=== PATIENT | female | born 1970 | race Caucasian/White ===

== ENCOUNTER 2017-04-07 17:39 | Emergency (ER) | payer OTHER ==
[2017-04-07] MEDS ORDERED: TORAdol 30 mg Injection IM ONE (18:15)
--- NOTE | 2017-04-07 18:18 | ERPHSYRPT ---
- History of Present Illness Time Seen by Provider: 04/07/17 18:16 Source: patient Exam Limitations: no limitations Patient Subjective Stated Complaint: states three days ago was lifting a case of water and twisted right wrist. pain to wrist. Triage Nursing Assessment: ambulated to room per self. having tremors in extremities. has right wrist wrapped tightly with matheus wrap. wrist normal color , good radial pulse, warm to touch. good cap refill. patient very talkative, crying out at times. Physician History: 46 y/o female comes to the ER with complaints of right wrist and arm pain that started after a case of water fell on it. Pt describes the pain as sharp, constant, 8/10, worse with movement and not relieved by ibuprofen, tylenol and percocet. Occurred: yesterday Method of Injury: direct blow Quality: constant Severity of Pain-Max: severe Severity of Pain-Current: severe Extremities Pain Location: forearm: right, wrist: right Modifying Factors: Improves With: nothing Associated Symptoms: none Allergies/Adverse Reactions: acetaminophen [From Fioricet] Allergy (Verified 04/07/17 18:21) butalbital [From Fioricet] Allergy (Verified 04/07/17 18:21) caffeine [From Fioricet] Allergy (Verified 04/07/17 18:21) duloxetine [From Cymbalta] Allergy (Verified 04/07/17 18:21) morphine Allergy (Verified 04/07/17 18:21) Penicillins Allergy (Verified 04/07/17 18:21) Home Medications: Albuterol 8 gm Mdi Hfa [Ventolin Hfa MDI] 8 gm IH UD 04/07/17 [History] Alprazolam [Xanax] 2 mg PO BID 04/07/17 [History] Cetirizine HCl [Zyrtec] 10 mg PO DAILY 04/07/17 [History] Cholecalciferol (Vitamin D3) [Vitamin D3] 5,000 unit PO DAILY 04/07/17 [History] Docusate Sodium [Dulcolax Stool Softener] 100 mg PO DAILY 04/07/17 [History] Fluticasone/Vilanterol [Breo Ellipta 200-25 Mcg INH] 1 each IH DAILY 04/07/17 [ History] Hydrochlorothiazide 25 mg [hydroDIURIL 25 MG] 25 mg PO BID 04/07/17 [ History] Magnesium Oxide [Magnesium] 500 mg PO DAILY 04/07/17 [History] Omeprazole 40 mg PO DAILY 04/07/17 [History] Oxycodone HCl/Acetaminophen [Percocet 10-325 mg Tablet] 1 each PO QID 04/07/17 [ History] Potassium Chloride 10 Meq Tab* [Klor Con 10 MEQ] 10 meq PO BID 04/07/17 [ History] Quetiapine Fumarate [Seroquel] 100 mg PO HS 04/07/17 [History] Ranitidine HCl [Zantac] 300 mg PO HS 04/07/17 [History] Tiotropium [place] [Spiriva] 18 mcg IH DAILY 04/07/17 [History] Tizanidine HCl 4 mg [Zanaflex 4 MG] 4 mg PO HS 04/07/17 [History] Hx Tetanus, Diphtheria Vaccination/Date Given: Yes Hx Influenza Vaccination/Date Given: Yes Hx Pneumococcal Vaccination/Date Given: No - Review of Systems Constitutional: No Fever, No Chills Eyes: No Symptoms Ears, Nose, & Throat: No Symptoms Respiratory: No Cough, No Dyspnea Cardiac: No Chest Pain, No Edema, No Syncope Abdominal/Gastrointestinal: No Abdominal Pain, No Nausea, No Vomiting, No Diarrhea Genitourinary Symptoms: No Dysuria Musculoskeletal: Joint Pain, Myalgias, No Back Pain, No Neck Pain Skin: No Rash Neurological: No Dizziness, No Focal Weakness, No Sensory Changes Psychological: No Symptoms Endocrine: No Symptoms All Other Systems: Reviewed and Negative - Past Medical History Pertinent Past Medical History: Yes Respiratory History: COPD Musculoskeletal History: Degenerative Disk Disease, Osteoarthritis, Other GI Medical History: GERD Psycho-Social History: Anxiety, Depression Female Reproductive Disorders: Abnormal Uterine Bleeding Other Medical History: allergies - Past Surgical History Past Surgical History: Yes Gastrointestinal: Appendectomy, Cholecystectomy Musculoskeletal: Orthopedic Surgery Female Surgical History: Tubal Ligation Other Surgical History: back surgery, ear surgery, ablasion - Social History Smoking Status: Current every day smoker How long have you smoked: 30 Exposure to second hand smoke: Yes Drug Use: none Patient Lives Alone: No - Female History Hx Last Menstrual Period: 03/21/17 - Nursing Vital Signs Nursing Vital Signs: Initial Vital Signs Temperature 98 F 04/07/17 17:45 Pulse Rate 90 08/24/17 17:45 Respiratory Rate 20 04/07/17 17:45 Blood Pressure 135/86 04/07/17 17:45 O2 Sat by Pulse Oximetry 98 04/07/17 17:45 Pain Scale Pain Intensity 10 - Physical Exam General Appearance: alert Eyes, Ears, Nose, Throat Exam: moist mucous membranes Neck Exam: non-tender, supple Cardiovascular/Respiratory Exam: chest non-tender, normal breath sounds, regular rate/rhythm, no respiratory distress Abdominal Exam: non-tender, No guarding Back Exam: normal inspection, No vertebral tenderness Elbow/Forearm Exam: bone tenderness, limited ROM Wrist Exam: bone tenderness, limited ROM Neuro/Tendon Exam: normal sensation, normal motor functions Mental Status Exam: alert, oriented x 3, cooperative Skin Exam: normal color, warm, dry SpO2: 98 Oxygen Delivery: Room Air - Course Nursing assessment & vital signs reviewed: Yes Ordered Tests: Active Orders 24 hr Category Date Time Status Matheus Bandage Application -[facility] STAT Care 04/07/17 19:14 Ordered Sling Application STAT Care 04/07/17 19:14 Ordered FOREARM Stat Exams 04/07/17 Taken WRIST (MIN 3 VIEWS) Stat Exams 04/07/17 Taken Medication Summary Discontinued Medications Generic Name Dose Route Start Last Admin Trade Name Freq PRN Reason Stop Dose Admin Ketorolac Tromethamine 60 mg 04/07/17 18:15 04/07/17 18:30 Toradol 30 Mg Injection IM 04/07/17 18:16 60 mg STAT ONE Administration Ketorolac Tromethamine Confirm 04/07/17 18:28 Toradol 30 Mg Injection Administered 04/07/17 18:29 Dose 60 mg .ROUTE .STK-MED ONE - Progress Progress: improved Progress Note: 04/07/17 19:15 The x ray of the wrist and forearm do not show an acute fracture or dislocation. Pt will be d/c home on toradol for pain. - Departure Time of Disposition: 19:15 Departure Disposition: Home Clinical Impression: Forearm injury Qualifiers: Encounter type: initial encounter Laterality: right Qualified Code(s): S59.911A - Unspecified injury of right forearm, initial encounter Condition: Stable Critical Care Time: No Referrals: LAMIN US [Primary Care Provider] - Instructions: Wrist Sprain Additional Instructions: Follow up with your primary care doctor for any additional management for pain. Prescriptions: Ketorolac Tromethamine [Toradol] 10 mg PO QID PRN #20 tablet PRN Reason: Pain
[2017-04-07] MEDS ORDERED: TORAdol 30 mg Injection ONE (18:28)
[2017-04-07 19:24] VITALS: BP 100/67; PULSE 76; O2SAT 99
--- NOTE | 2017-04-08 09:10 | XRAY ---
Indication: Pain following fall 3 days ago. Comparison: None 2 views of the right forearm obtained. No bony, articular, or soft tissue abnormalities.
--- NOTE | 2017-04-08 09:11 | XRAY ---
Indication: Pain following fall 3 days ago. Comparison: None 3 views of the right wrist demonstrates distal scaphoid bone cyst. No other bony, articular, or soft tissue abnormalities.
== END 2017-04-07 19:24 | disposition home or self-care (01) ==
LOC: ED 17:39
DX: S59.911A Unspecified injury of right forearm, initial encounter (principal); X50.0XXA Overexertion from strenuous movement or load, initial encounter; Z79.899 Other long term (current) drug therapy
CPT/HCPCS: 73090; 73110; 96372; 99283; J1885

== ENCOUNTER 2019-09-24 08:04 | Day surgery (SDC) | payer OTHER ==
[2019-09-24] MEDS ORDERED: Lactated Ringers 1,000 ML IV SCH (08:30)
[2019-09-24] MEDS ORDERED: Ketamine HCl 50 MG/ML ONE (11:49)
[2019-09-24] MEDS ORDERED: DIPRIVAN 200 MG/20 ML IV ONE ×2 (11:49→12:06)
[2019-09-24 13:02] VITALS: BP 134/72; PULSE 71; O2SAT 95
--- NOTE | 2019-09-25 09:05 | OP ---
PROCEDURE DATE/TIME: 09/24/2019 1153 PREOPERATIVE DIAGNOSES: 1) Abdominal discomfort. 2) Food allergies. 3) Dysphagia. 4) Bloating. POSTOPERATIVE DIAGNOSES: 1) Reflux esophagitis. 2) Gastritis. PROCEDURE: EGD with multiple biopsies. PROCEDURE PERFORMED BY: Tiny Joiner M.D. ESTIMATED BLOOD LOSS: Minimal. ANESTHESIA: MAC. SPECIMENS: 1) Duodenal biopsies from first portion of the duodenum including second and third portion of the duodenum. 2) Gastric antrum. 3) Distal esophagus; rule out Lilly's disease. 4) Esophagitis; rule out eosinophilia. COMPLICATIONS: None. HISTORY: This is a patient who has multiple GI symptoms including abdominal pain/discomfort, bloating, nausea and dysphagia. She has been found to have potential food allergies and has changed her diet. We are working with diet changes to see how she is doing. However, she still continues to have symptoms and she has been referred back for further EGD by Dr. Jorge Alberto Zhao to see if her diet changes have decreased the inflammatory findings in her GI tract. Risks, benefits, alternatives have been discussed with the patient. She was seen personally. H&P and consent reviewed and confirmed. DESCRIPTION OF PROCEDURE: She was then laid in the left lateral decubitus position. A complete time out performed. The scope gently introduced into the mouth, oropharynx, down to the esophagus, stomach and duodenum. Her duodenum does not appear to have any inflammation. It is slightly more blanched in appearance with slightly more whitish-colored mucosa than a completely normal duodenum. I took multiple biopsies throughout D1, D2 and D3 to check this under the microscope and all these sites were hemostatic. We then backed the scope up to the antrum. The patient did have some gastritis throughout her stomach. It was moderate throughout the body and antrum, slightly milder in the superior aspect of the stomach and the tissue here was slightly thicker. I did take antral biopsy to rule out any microscopic findings including Helicobacter pylori disease. There is nothing in her stomach that looks malignant and there are no ulcers and there are no other findings other than inflammation. There was no blood. We then carefully withdrew after we insured hemostasis and then carefully withdrew the scope into the distal esophagus. The patient has some reflux esophagitis here. I did do distal esophagus biopsies to rule out any Lilyl's disease. She does not have any long columns of Lilly's like disease but she does have inflammation that extends for about 1 cm in two areas and so we biopsied these to insure no significant findings. These sites were hemostatic. Superior to this her esophagus had some very minimal inflammation immediate superior to this. I did take esophageal biopsies in this region, superior to our Lilly's biopsy to rule out any eosinophilic esophagitis or other findings here and these sites were hemostatic after biopsy. The remainder of her esophagus looked very good. She does have reflux. I do not see any significant hiatal hernia at this time. The patient tolerated this part of the procedure well. There were no immediate complications. We carefully withdrew the scope. I have discussed all of the results with her family in the postoperative area. We are going to keep her on her current medication regimen. I am going to keep her on her current diet regimen until we find the results of our biopsies. She is going to follow up with me in outpatient for these. Tentatively I am going to put her on a plan for EGD on an as needed basis but if anything comes back with concern for Lilly's disease then we will change that to a year from now.
== END 2019-09-24 13:07 | disposition home or self-care (01) ==
LOC: SDC 08:04
PROVIDERS: ATTEND Surgery
DX: K21.9 Gastro-esophageal reflux disease without esophagitis (principal); J98.4 Other disorders of lung; K29.70 Gastritis, unspecified, without bleeding; R13.10 Dysphagia, unspecified; R14.0 Abdominal distension (gaseous)
CPT/HCPCS: J2704

== ENCOUNTER 2020-01-30 11:38 | Emergency (ER) | payer OTHER ==
--- NOTE | 2020-01-30 11:47 | ERPHSYRPT ---
- History of Present Illness Time Seen by Provider: 01/30/20 11:47 Source: patient Exam Limitations: no limitations Physician History: This is a 49-year-old female who smokes daily and presents with flulike symptoms including cough mild shortness of breath myalgias and arthralgias. Her symptoms have been intermittent over the last 4 weeks. Patient was here to be with her significant other and during the screening questioning the patient's responses prompted the patient to be evaluated. Patient denies chest pain. She has had no nausea vomiting or diarrhea. Her significant other is here in the emergency room for evaluation of his productive cough and chest pain associated with his cough. Patient states that she can use codeine and hydrocodone-based cough me dicine. She can also use steroids as well. Timing/Duration: week(s) (4), intermittent, worse Possible Cause: occasional episodes Modifying Factors: Improves With: coughing Associated Symptoms: fever, cough, muscle aches, shortness of breath Allergies/Adverse Reactions: morphine Allergy (Severe, Verified 09/24/19 08:20) Headache "fee like my head will explode" nortriptyline Allergy (Severe, Verified 09/24/19 08:20) Muscle Aches "severe leg cramps" acetaminophen [From Fioricet] Allergy (Intermediate, Verified 09/24/19 08:20) Rapid Heart Beat butalbital [From Fioricet] Allergy (Intermediate, Verified 09/24/19 08:20) Irregular Heart Beat caffeine [From Fioricet] Allergy (Intermediate, Verified 09/24/19 08:20) Irregular Heart Beat duloxetine [From Cymbalta] Allergy (Intermediate, Verified 09/24/19 08:20) Irregular Heart Beat Penicillins Allergy (Intermediate, Verified 09/24/19 08:20) Hives Home Medications: Albuterol 8 gm Mdi Hfa [Ventolin Hfa MDI] 8 gm IH UD 04/07/17 [History] Alprazolam [Xanax] 1.5 mg PO BID 04/07/17 [History] Cetirizine HCl [Zyrtec] 10 mg PO DAILY 04/07/17 [History] Docusate Sodium [Dulcoease] 100 mg PO DAILY 04/07/17 [History] Fluticasone/Vilanterol [Breo Ellipta 200-25 Mcg INH] 1 each IH DAILY 04/07/17 [History] Hydrochlorothiazide 25 mg [hydroDIURIL 25 MG] 25 mg PO DAILY 04/07/17 [History] Omeprazole 40 mg PO DAILY 04/07/17 [History] Oxycodone HCl/Acetaminophen [Percocet 10-325 mg Tablet] 1 each PO QID 04/07/17 [History] Potassium Chloride 10 Meq Tab* [Klor Con 10 MEQ] 10 meq PO BID 04/07/17 [History] Quetiapine Fumarate [Seroquel] 200 mg PO HS 04/07/17 [History] Tiotropium [place] [Spiriva] 18 mcg IH DAILY 04/07/17 [History] Tizanidine HCl 4 mg [Zanaflex 4 MG] 4 mg PO TID 04/07/17 [History] raNITIdine HCl [Zantac] 300 mg PO HS 04/07/17 [History] Albuterol 2.5 mg/3 ml Neb [Proventil 2.5 mg/3 ml Neb] 2.5 mg IH Q4HPRN PRN 09/14/19 [History] Fluticasone Propionate [Flonase NASAL] 16 gm NS DAILY 09/14/19 [History] Linaclotide [Linzess] 72 mcg PO DAILY 09/14/19 [History] Multivitamin [Flintstones] 1 each PO DAILY 09/14/19 [History] Hx Tetanus, Diphtheria Vaccination/Date Given: Yes Hx Influenza Vaccination/Date Given: Yes Hx Pneumococcal Vaccination/Date Given: No Travel Risk - International Travel Have you traveled outside of the country in past 3 weeks: No - Coronavirus Screening Are you exhibiting any of the following symptoms?: Yes Symptoms: Cough: New Onset, Shortness of Breath, Headaches/Body Aches/Fatigue Close contact with a COVID-19 positive Pt in past 14-21 Days: No - Review of Systems Constitutional: No Symptoms Eyes: No Symptoms Ears, Nose, & Throat: No Symptoms Respiratory: Cough, Dyspnea Cardiac: No Symptoms, No Chest Pain Abdominal/Gastrointestinal: No Symptoms, No Abdominal Pain, No Nausea, No Vomiting, No Diarrhea, No Constipation Genitourinary Symptoms: No Symptoms Musculoskeletal: Arthralgias, Myalgias Skin: No Symptoms Neurological: No Symptoms Psychological: No Symptoms Endocrine: No Symptoms Hematologic/Lymphatic: No Symptoms Immunological/Allergic: No Symptoms All Other Systems: Reviewed and Negative - Past Medical History Pertinent Past Medical History: Yes Neurological History: No Pertinent History ENT History: No Pertinent History Cardiac History: Congestive Heart Failure, Hypertension Respiratory History: COPD Endocrine Medical History: No Pertinent History Musculoskeletal History: Degenerative Disk Disease, Osteoarthritis, Other GI Medical History: GERD History: Other Psycho-Social History: Anxiety, Depression Female Reproductive Disorders: Abnormal Uterine Bleeding Other Medical History: allergies seasonal, states "getting testing for difficulty emptying bladder and contracted kidney by the ultrasound" - Past Surgical History Past Surgical History: Yes Neuro Surgical History: No Pertinent History Cardiac: No Pertinent History Respiratory: No Pertinent History Gastrointestinal: Appendectomy, Cholecystectomy Genitourinary: No Pertinent History Musculoskeletal: Orthopedic Surgery Female Surgical History: Tubal Ligation Other Surgical History: back surgery "put two rods in and some other hdw and replaced disc", ear surgery "fixed a whole in my right ear" uterine ablation, - Social History Smoking Status: Current every day smoker How long have you smoked: 30 Exposure to second hand smoke: Yes Drug Use: none Patient Lives Alone: No - Nursing Vital Signs Nursing Vital Signs: Initial Vital Signs Respiratory Rate 18 01/30/20 12:05 O2 Sat by Pulse Oximetry 96 01/30/20 12:05 Pain Scale Pain Intensity 0 - Physical Exam General Appearance: mild distress, alert, anxiety Eye Exam: PERRL/EOMI, eyes nml inspection Ears, Nose, Throat Exam: normal ENT inspection, moist mucous membranes Neck Exam: normal inspection, non-tender, supple, full range of motion Respiratory Exam: normal breath sounds, lungs clear, airway intact, No chest tenderness, No respiratory distress Cardiovascular Exam: regular rate/rhythm, normal heart sounds, normal peripheral pulses Gastrointestinal/Abdomen Exam: soft, normal bowel sounds, No tenderness Pelvic Exam: not done Rectal Exam: not done Back Exam: normal inspection, normal range of motion, No CVA tenderness, No vertebral tenderness Extremity Exam: normal inspection, normal range of motion, pelvis stable Neurologic Exam: alert, oriented x 3, cooperative, 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 Skin Exam: normal color, warm, dry Lymphatic Exam: No adenopathy SpO2 Interpretation: normal O2 Delivery: Room Air - Course Nursing assessment & vital signs reviewed: Yes EKG Interpreted by Me: RATE (66), Sinus Rhythm, NORMAL AXIS, NORMAL INTERVALS, NORMAL QRS Ordered Tests: Active Orders 24 hr Category Date Time Status [facility]ist STAT Care 01/30/20 12:22 Active EKG-ER Only STAT Care 01/30/20 12:16 Active IV Insertion STAT Care 01/30/20 12:16 Active Pulse Oximetry (ED) STAT Care 01/30/20 12:22 Active CHEST 1 VIEW (PORTABLE) Stat Exams 01/30/20 12:17 Completed BLOOD CULTURE Stat Lab 01/30/20 12:20 Received CBC W DIFF Stat Lab 01/30/20 12:16 Completed CMP Stat Lab 01/30/20 12:10 Completed Lactic Acid Stat Lab 01/30/20 12:16 Completed Randall Screen Stat Lab 01/30/20 12:10 Completed UA W/RFX UR CULTURE Stat Lab 01/30/20 12:21 Completed Lab/Rad Data: Laboratory Result Diagrams 01/30/20 12:16 01/30/20 12:10 Laboratory Results 01/30/20 01/30/20 01/30/20 Range/Units 13:10 12:21 12:16 WBC (4.0-10.5) K/mm3 RBC (4.1-5.4) M/mm3 Hgb (12.0-16.0) gm/dl Hct (35-47) % MCV (78-100) fl MCH (26-32) pg MCHC (32-36) g/dl RDW (11.5-14.0) % Plt Count (150-450) K/mm3 MPV (7.5-11.0) fl Gran % (36.0-66.0) % Eos # (Auto) (0-0.5) Absolute Lymphs (auto) (1.0-4.6) Absolute Monos (auto) (0.0-1.3) Lymphocytes % (24.0-44.0) % Monocytes % (0.0-12.0) % Eosinophils % (0.00-5.0) % Basophils % (0.0-0.4) % Absolute Granulocytes (1.4-6.9) Basophils # (0-0.4) Sodium (137-145) mmol/L Potassium (3.5-5.1) mmol/L Chloride (98-107) mmol/L Carbon Dioxide (22-30) mmol/L Anion Gap (5-15) MEQ/L BUN (7-17) mg/dL Creatinine (0.52-1.04) mg/dL Estimated GFR ML/MIN Glucose (74-106) mg/dL Lactic Acid 1.2 (0.4-2.0) Calcium (8.4-10.2) mg/dL Total Bilirubin (0.2-1.3) mg/dL AST (14-36) U/L ALT (0-35) U/L Alkaline Phosphatase (38-126) U/L Serum Total Protein (6.3-8.2) g/dL Albumin (3.5-5.0) g/dL Urine Color YELLOW (YELLOW) Urine Appearance CLEAR (CLEAR) Urine pH 6.0 (5-6) Ur Specific [place] 1.013 (1.005-1.025) Urine Protein NEGATIVE (Negative) Urine Ketones NEGATIVE (NEGATIVE) Urine Blood NEGATIVE (0-5) Subhash/ul Urine Nitrite NEGATIVE (NEGATIVE) Urine Bilirubin NEGATIVE (NEGATIVE) Urine Urobilinogen NEGATIVE (0-1) mg/dL Ur Leukocyte Esterase NEGATIVE (NEGATIVE) Urine WBC (Auto) NONE (0-5) /HPF Urine RBC (Auto) NONE (0-2) /HPF U Epithel Cells (Auto) RARE (FEW) /HPF Urine Bacteria (Auto) NONE (NEGATIVE) /HPF Urine Mucus (Auto) SLIGHT (NEGATIVE) /HPF Urine Culture Reflexed NO (NO) Urine Glucose NEGATIVE (NEGATIVE) mg/dL Monoscreen (Negative) Influenza Type A Ag NEGATIVE (NEGATIVE) Influenza Type B Ag NEGATIVE (NEGATIVE) RSV (PCR) NEGATIVE (Negative) Group A Strep Antibody NEGATIVE (NEGATIVE) 01/30/20 01/30/20 01/30/20 Range/Units 12:16 12:10 12:10 WBC 8.3 (4.0-10.5) K/mm3 RBC 4.93 (4.1-5.4) M/mm3 Hgb 15.6 (12.0-16.0) gm/dl Hct 48.5 H (35-47) % MCV 98.4 (78-100) fl MCH 31.6 (26-32) pg MCHC 32.2 (32-36) g/dl RDW 13.8 (11.5-14.0) % Plt Count 298 (150-450) K/mm3 MPV 10.2 (7.5-11.0) fl Gran % 51.7 (36.0-66.0) % Eos # (Auto) 0.16 (0-0.5) Absolute Lymphs (auto) 3.41 (1.0-4.6) Absolute Monos (auto) 0.41 (0.0-1.3) Lymphocytes % 41.1 (24.0-44.0) % Monocytes % 4.9 (0.0-12.0) % Eosinophils % 1.9 (0.00-5.0) % Basophils % 0.4 (0.0-0.4) % Absolute Granulocytes 4.28 (1.4-6.9) Basophils # 0.03 (0-0.4) Sodium 138 (137-145) mmol/L Potassium 3.8 (3.5-5.1) mmol/L Chloride 106 (98-107) mmol/L Carbon Dioxide 27 (22-30) mmol/L Anion Gap 9.2 (5-15) MEQ/L BUN 11 (7-17) mg/dL Creatinine 0.64 (0.52-1.04) mg/dL Estimated GFR > 60.0 ML/MIN Glucose 103 (74-106) mg/dL Lactic Acid (0.4-2.0) Calcium 9.4 (8.4-10.2) mg/dL Total Bilirubin 0.40 (0.2-1.3) mg/dL AST 21 (14-36) U/L ALT 16 (0-35) U/L Alkaline Phosphatase 98 (38-126) U/L Serum Total Protein 7.9 (6.3-8.2) g/dL Albumin 4.3 (3.5-5.0) g/dL Urine Color (YELLOW) Urine Appearance (CLEAR) Urine pH (5-6) Ur Specific [place] (1.005-1.025) Urine Protein (Negative) Urine Ketones (NEGATIVE) Urine Blood (0-5) Subhash/ul Urine Nitrite (NEGATIVE) Urine Bilirubin (NEGATIVE) Urine Urobilinogen (0-1) mg/dL Ur Leukocyte Esterase (NEGATIVE) Urine WBC (Auto) (0-5) /HPF Urine RBC (Auto) (0-2) /HPF U Epithel Cells (Auto) (FEW) /HPF Urine Bacteria (Auto) (NEGATIVE) /HPF Urine Mucus (Auto) (NEGATIVE) /HPF Urine Culture Reflexed (NO) Urine Glucose (NEGATIVE) mg/dL Monoscreen NEGATIVE (Negative) Influenza Type A Ag (NEGATIVE) Influenza Type B Ag (NEGATIVE) RSV (PCR) (Negative) Group A Strep Antibody (NEGATIVE) - Progress Progress: improved Air Movement: good Progress Note: 01/30/20 13:49 Chest x-ray reveals no acute pulmonary process Blood Culture(s) Obtained: No Antibiotics given: No Counseled pt/family regarding: lab results, diagnosis, need for follow-up, rad results - Departure Departure Disposition: Home Clinical Impression: Bronchitis Condition: Stable Critical Care Time: No Referrals: AMRITA LOCKETT MD [Primary Care Provider] - Additional Instructions: Drink plenty of fluids. Avoid exposure to smoke of any kind. Quarantine yourself until you find out the results of your COVID-19 test. Follow-up with your primary care physician for further management. Take your medications as prescribed Prescriptions: Prednisone 10 mg [Deltasone 10 mg] 10 mg PO TID #12 tablet Hydrocodone Bit/Acetaminophen [Hydrocodone-Acetaminophen Soln] 10 ml PO Q6H #120 ml Azithromycin 250 mg [Zithromax 250 MG TABLET] 250 mg PO ZPACK #6 tablet
--- NOTE | 2020-01-30 12:54 | XRAY ---
Indication: Cough and nausea. Suspect Covid 19. Comparison: None Portable chest demonstrates normal heart and lungs with a few incidental tiny calcified granulomas. Bony thorax intact.
[2020-01-30 13:02] LABS: Absolute Neutrophil Ct (ANC) 4.28 (1.4-6.9); BASOPHIL % 0.4 % (0.0-0.4); Basophil (Absolute #) 0.03 (0-0.4); Eosinophil % 1.9 % (0.00-5.0); Eosinophil (Absolute #) 0.16 (0-0.5); Hematocrit 48.5 % (35-47); Hemoglobin 15.6 gm/dl (12.0-16.0); Lymphocyte (Absolute #) 3.41 (1.0-4.6); Lymphocytes % 41.1 % (24.0-44.0); Mean Cell Volume 98.4 fl (78-100); Mean Corpuscular Hemoglobin 31.6 pg (26-32); Mean Corpuscular Hgb Concent. 32.2 g/dl (32-36); Mean Platelet Volume 10.2 fl (7.5-11.0); Monocyte (Absolute #) 0.41 (0.0-1.3); Monocytes % 4.9 % (0.0-12.0); Neutrophil % 51.7 % (36.0-66.0); Platelet Count 298 K/mm3 (150-450); Red Blood Count 4.93 M/mm3 (4.1-5.4); Red Cell Distribution Width 13.8 % (11.5-14.0); White Blood Count 8.3 K/mm3 (4.0-10.5)
[2020-01-30 13:09] LABS: ALBUMIN 4.3 g/dL (3.5-5.0); ALKALINE PHOSPHATASE 98 U/L (38-126); ANION GAP 9.2 MEQ/L (5-15); BLOOD UREA NITROGEN 11 mg/dL (7-17); CHLORIDE 106 mmol/L (98-107); Calcium 9.4 mg/dL (8.4-10.2); Carbon Dioxide 27 mmol/L (22-30); Creatinine 1 0.64 mg/dL (0.52-1.04); Glucose 103 mg/dL (74-106); Potassium 3.8 mmol/L (3.5-5.1); SGOT/AST 21 U/L (14-36); SGPT/ALT 16 U/L (0-35); SODIUM 138 mmol/L (137-145); Total Protein 7.9 g/dL (6.3-8.2)
[2020-01-30 13:44] LABS: Appearance CLEAR (CLEAR); Bilirubin NEGATIVE (NEGATIVE); Blood NEGATIVE Ery/ul (0-5); Epithelial Cells RARE /HPF (FEW); Glucose NEGATIVE (NEGATIVE); Ketones NEGATIVE (NEGATIVE); Leukocyte Esterase NEGATIVE (NEGATIVE); Mucus SLIGHT /HPF (NEGATIVE); Nitrite NEGATIVE (NEGATIVE); Protein,Urine Dip NEGATIVE (Negative); Specific Gravity 1.013 (1.005-1.025); Urobilinogen NEGATIVE mg/dL (0-1)
[2020-01-30 13:48] LABS: INFLUENZA A NEGATIVE (NEGATIVE); INFLUENZA B NEGATIVE (NEGATIVE); RESPIRATORY SYNCTIAL VIRUS NEGATIVE (Negative)
[2020-01-30 14:08] VITALS: BP 99/66; PULSE 80; O2SAT 95
== END 2020-01-30 14:09 | disposition home or self-care (01) ==
LOC: ED 11:38
DX: J40 Bronchitis, not specified as acute or chronic (principal); R05 Cough; Z79.891 Long term (current) use of opiate analgesic; Z79.899 Other long term (current) drug therapy; I10 Essential (primary) hypertension; I50.9 Heart failure, unspecified; J44.9 Chronic obstructive pulmonary disease, unspecified
CPT/HCPCS: 36000; 36415; 71045; 80053; 81001; 83605; 85025; 86308; 87040; 87631; 87651; 93005; 93041; 94760; 99284; U0002

== ENCOUNTER 2021-11-13 14:14 | Emergency (ER) | payer OTHER ==
[2021-11-13] MEDS ORDERED: Lasix 40 MG/4 ML IV ONE (14:23)
[2021-11-13] MEDS ORDERED: BABY ASPIRIN 81 MG CHEW PO ONE (14:23)
[2021-11-13] MEDS ORDERED: DUONEB 0.5-3 MG/3 ml Neb IH ONE ×2 (14:25→14:38)
[2021-11-13] MEDS ORDERED: solu-MEDROL 125 MG, Sterile H2O 10 ml 2 ML IV ONE ×2 (14:25)
[2021-11-13] MEDS ORDERED: Sterile H2O 10 ml IJ ONE (14:34)
[2021-11-13] MEDS ORDERED: BABY ASPIRIN 81 MG CHEW ONE (14:35)
[2021-11-13] MEDS ORDERED: solu-MEDROL ONE (14:35)
[2021-11-13] MEDS ORDERED: Lasix 40 MG/4 ML ONE (14:35)
--- NOTE | 2021-11-13 14:35 | ERPHSYRPT ---
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 The fluid was gone and he told me to go back to the original dose and now I think the fluid is back. My chest started to hurt last night." Triage Nursing Assessment: Pt presented alert and oriented X3, skin pwd pt ambulates with a slow gait, able to sepak in full complete sentences pt in no apaprent respiratory distress. PT has intermittant cough. Physician History: Patient is here with chest pain and shortness of breath. Patient states that she started feeling more short of breath last night. Patient does have a history of CHF, COPD. 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 States that she has no falls or other trauma. Patient states that they recently increased her Lasix. And then back down. Patient states that she is a daily smoker. Last cigarette was approximately 20 minutes prior to arrival. Timing/Duration: yesterday Severity: moderate Modifying Factors: Improves With: medication Associated Symptoms: denies symptoms Allergies/Adverse Reactions: morphine Allergy (Severe, Verified 09/24/19 08:20) Headache "fee like my head will explode" nortriptyline Allergy (Severe, Verified 09/24/19 08:20) Muscle Aches "severe leg cramps" acetaminophen [From Fioricet] Allergy (Intermediate, Verified 09/24/19 08:20) Rapid Heart Beat butalbital [From Fioricet] Allergy (Intermediate, Verified 09/24/19 08:20) Irregular Heart Beat caffeine [From Fioricet] Allergy (Intermediate, Verified 09/24/19 08:20) Irregular Heart Beat duloxetine [From Cymbalta] Allergy (Intermediate, Verified 09/24/19 08:20) Irregular Heart Beat Penicillins Allergy (Intermediate, Verified 09/24/19 08:20) Hives Home Medications: ALPRAZolam [Xanax] 1.5 mg PO BID 04/07/17 [History] Albuterol 8 gm Mdi Hfa [Ventolin Hfa MDI] 8 gm IH UD 04/07/17 [History] Cetirizine HCl [Zyrtec] 10 mg PO DAILY 04/07/17 [History] Docusate Sodium [Dulcoease] 100 mg PO DAILY 04/07/17 [History] Fluticasone/Vilanterol [Breo Ellipta 200-25 Mcg INH] 1 each IH DAILY 04/07/17 [History] Omeprazole 40 mg PO DAILY 04/07/17 [History] Potassium Chloride 10 Meq Tab* [Klor Con 10 MEQ] 10 meq PO BID 04/07/17 [History] Quetiapine Fumarate [Seroquel] 200 mg PO HS 04/07/17 [History] Tiotropium Draper [Spiriva] 18 mcg IH DAILY 04/07/17 [History] Tizanidine HCl 4 mg [Zanaflex 4 MG] 4 mg PO TID 04/07/17 [History] raNITIdine HCl [Zantac] 300 mg PO HS 04/07/17 [History] Albuterol 2.5 mg/3 ml Neb [Proventil 2.5 mg/3 ml Neb] 2.5 mg IH Q4HPRN PRN 09/14/19 [History] Fluticasone Propionate [Flonase NASAL] 16 gm NS DAILY 09/14/19 [History] Linaclotide [Linzess] 72 mcg PO DAILY 09/14/19 [History] Multivitamin [Flintstones] 1 each PO DAILY 09/14/19 [History] Furosemide 40 mg [Lasix 40 MG] 40 mg PO DAILY 11/13/21 [History] Hx Tetanus, Diphtheria Vaccination/Date Given: Yes Hx Influenza Vaccination/Date Given: Yes Hx Pneumococcal Vaccination/Date Given: No Immunizations Up to Date: Yes Travel Risk - International Travel Have you traveled outside of the country in past 3 weeks: No - Coronavirus Screening Are you exhibiting any of the following symptoms?: No Close contact with a COVID-19 positive Pt in past 14-21 Days: No - Vaccine Status Have you recieved a Covid-19 vaccination: Yes Back Maker: [employer] - Vaccination Dates Date of 2cond Vaccination (if applicable): 07/2021 - Review of Systems Constitutional: No Fever, No Chills Eyes: No Symptoms Ears, Nose, & Throat: No Symptoms Respiratory: Cough, Wheezing, Other (Shortness of breath), No Dyspnea Cardiac: Chest Pain, No Edema, No Syncope Abdominal/Gastrointestinal: No Abdominal Pain, No Nausea, No Vomiting, No Diarrhea Genitourinary Symptoms: No Dysuria Musculoskeletal: No Back Pain, No Neck Pain Skin: No Rash Neurological: No Dizziness, No Focal Weakness, No Sensory Changes Psychological: No Symptoms Endocrine: No Symptoms All Other Systems: Reviewed and Negative - Past Medical History Pertinent Past Medical History: Yes Neurological History: No Pertinent History ENT History: No Pertinent History Cardiac History: Congestive Heart Failure, Hypertension Respiratory History: COPD Endocrine Medical History: No Pertinent History Musculoskeletal History: Degenerative Disk Disease, Osteoarthritis, Other GI Medical History: GERD History: Other Psycho-Social History: Anxiety, Depression Female Reproductive Disorders: Abnormal Uterine Bleeding Other Medical History: allergies seasonal, states "getting testing for difficulty emptying bladder and contracted kidney by the ultrasound" - Past Surgical History Past Surgical History: Yes Neuro Surgical History: No Pertinent History Cardiac: No Pertinent History Respiratory: No Pertinent History Gastrointestinal: Appendectomy, Cholecystectomy Genitourinary: No Pertinent History Musculoskeletal: Orthopedic Surgery Female Surgical History: Tubal Ligation Other Surgical History: back surgery "put two rods in and some other hdw and replaced disc", ear surgery "fixed a whole in my right ear" uterine ablation, - Social History Smoking Status: Current every day smoker How long have you smoked: 30 Exposure to second hand smoke: Yes Drug Use: none Patient Lives Alone: No - Nursing Vital Signs Nursing Vital Signs: Initial Vital Signs Temperature 98.0 F 11/13/21 14:14 Pulse Rate 90 11/13/21 14:14 Respiratory Rate 22 11/13/21 14:14 Blood Pressure 129/66 11/13/21 14:14 O2 Sat by Pulse Oximetry 97 11/13/21 14:14 Pain Scale Pain Intensity 6 - Physical Exam General Appearance: no apparent distress, alert Eye Exam: PERRL/EOMI, eyes nml inspection Ears, Nose, Throat Exam: normal ENT inspection, TMs normal, pharynx normal, moist mucous membranes Neck Exam: normal inspection, non-tender, supple, full range of motion Respiratory Exam: chest tenderness (Chest wall pain reproducible on physical exam, patient very wheezy), wheezing, No normal breath sounds, No lungs clear, No respiratory distress Cardiovascular Exam: regular rate/rhythm, normal heart sounds, normal peripheral pulses Gastrointestinal/Abdomen Exam: soft, normal bowel sounds, No tenderness, No mass Back Exam: normal inspection, normal range of motion, No CVA tenderness, No vertebral tenderness Extremity Exam: normal inspection, normal range of motion, pelvis stable Neurologic Exam: alert, oriented x 3, cooperative, normal mood/affect, nml cere bellar function, nml station & gait, sensation nml, No motor deficits Skin Exam: normal color, warm, dry, No rash Lymphatic Exam: No adenopathy SpO2: 97 - Course Nursing assessment & vital signs reviewed: Yes EKG Interpreted by Me: Sinus Rhythm Ordered Tests: Active Orders 24 hr Category Date Time Status Support Technician STAT Care 11/13/21 14:24 Active EKG-ER Only STAT Care 11/13/21 14:23 Active IV Insertion STAT Care 11/13/21 14:23 Active CHEST 2 VIEWS (PA AND LAT) Stat Exams 11/13/21 14:24 Completed CBC W DIFF Stat Lab 11/13/21 14:30 Completed CMP Stat Lab 11/13/21 14:30 Completed LIPASE Stat Lab 11/13/21 14:30 Completed NT PRO BNP Stat Lab 11/13/21 14:30 Completed PROTIME WITH INR Stat Lab 11/13/21 14:30 Completed PTT Stat Lab 11/13/21 14:30 Completed TROPONIN Q3H Lab 11/13/21 14:30 Completed TROPONIN Q3H Lab 11/13/21 17:30 Ordered TROPONIN Q3H Lab 11/13/21 20:30 Ordered TROPONIN Q3H Lab 11/13/21 23:30 Ordered TROPONIN Q3H Lab 11/14/21 02:30 Ordered Respiratory Therapy Assessment DAILY RT 11/13/21 14:44 Active Medication Summary Generic Name Dose Route Start Last Admin Trade Name Freq PRN Reason Stop Dose Admin Magnesium Sulfate/Dextrose 100 mls @ 100 mls/hr 11/13/21 14:45 11/13/21 14:58 Magnesium 1 Gm / 100 Ml D5w IV 11/13/21 16:44 100 mls/hr Q1H PEPE Administration Discontinued Medications Generic Name Dose Route Start Last Admin Trade Name Freq PRN Reason Stop Dose Admin Albuterol/Ipratropium 3 ml 11/13/21 14:25 11/13/21 14:40 Ipratropium/Albuterol Sulfate 3 Ml Ampul.Neb IH 11/13/21 14:26 3 ml STAT ONE Administration Albuterol/Ipratropium Confirm 11/13/21 14:38 Ipratropium/Albuterol Sulfate 3 Ml Ampul.Neb Administered 11/13/21 14:39 Dose 3 ml IH .STK-MED ONE Aspirin 324 mg 11/13/21 14:23 11/13/21 14:38 Aspirin 81 Mg Tab.Chew PO 11/13/21 14:24 324 mg STAT ONE Administration Aspirin Confirm 11/13/21 14:35 Aspirin 81 Mg Tab.Chew Administered 11/13/21 14:36 Dose 324 mg .ROUTE .STK-MED ONE Methylprednisolone Sodium 0 mg 11/13/21 14:25 11/13/21 14:42 Succinate 125 mg/ Sterile IV 11/13/21 14:26 125 mg Water 2 ml STAT ONE Administration Furosemide 60 mg 11/13/21 14:23 11/13/21 14:39 Furosemide 40 Mg/4 Ml Vial IV 11/13/21 14:24 60 mg STAT ONE Administration Furosemide Confirm 11/13/21 14:35 Furosemide 40 Mg/4 Ml Vial Administered 11/13/21 14:36 Dose 80 mg .ROUTE .STK-MED ONE Methylprednisolone Sodium Succinate Confirm 11/13/21 14:35 Methylprednis Sod Succ 125 Mg/2 Ml Vial Administered 11/13/21 14:36 Dose 125 mg .ROUTE .STK-MED ONE Sterile Water Confirm 11/13/21 14:34 Water For Injection,Sterile 10 Ml Vial Administered 11/13/21 14:35 Dose 10 ml IJ .STK-MED ONE Lab/Rad Data: Laboratory Result Diagrams 11/13/21 14:30 11/13/21 14:30 Laboratory Results 11/13/21 11/13/21 11/13/21 Range/Units 14:30 14:30 14:30 WBC (4.0-10.5) K/mm3 RBC (4.1-5.4) M/mm3 Hgb (12.0-16.0) gm/dl Hct (35-47) % MCV (78-100) fl MCH (26-32) pg MCHC (32-36) g/dl RDW (11.5-14.0) % Plt Count (150-450) K/mm3 MPV (7.5-11.0) fl Gran % (36.0-66.0) % Eos # (Auto) (0-0.5) Absolute Lymphs (auto) (1.0-4.6) Absolute Monos (auto) (0.0-1.3) Lymphocytes % (24.0-44.0) % Monocytes % (0.0-12.0) % Eosinophils % (0.00-5.0) % Basophils % (0.0-0.4) % Absolute Granulocytes (1.4-6.9) Basophils # (0-0.4) PT 11.8 (9.4-12.5) SECONDS INR 1.00 (0.8-3.0) APTT 33.6 (25.1-36.5) SECONDS Sodium 140 (137-145) mmol/L Potassium 3.8 (3.5-5.1) mmol/L Chloride 106 (98-107) mmol/L Carbon Dioxide 24 (22-30) mmol/L Anion Gap 14.3 (5-15) MEQ/L BUN 12 (7-17) mg/dL Creatinine 0.66 (0.52-1.04) mg/dL Estimated GFR > 60.0 ML/MIN Glucose 103 (74-106) mg/dL Calcium 9.4 (8.4-10.2) mg/dL Total Bilirubin 0.50 (0.2-1.3) mg/dL AST 23 (14-36) U/L ALT 19 (0-35) U/L Alkaline Phosphatase 85 (38-126) U/L Troponin I < 0.012 (0.000-0.034) ng/mL NT-Pro-B Natriuret Pep 74.1 (0-900) pg/mL Serum Total Protein 6.9 (6.3-8.2) g/dL Albumin 4.1 (3.5-5.0) g/dL Lipase 77 (23-300) U/L 11/13/21 Range/Units 14:30 WBC 9.0 (4.0-10.5) K/mm3 RBC 4.75 (4.1-5.4) M/mm3 Hgb 14.1 (12.0-16.0) gm/dl Hct 45.4 (35-47) % MCV 95.6 (78-100) fl MCH 29.7 (26-32) pg MCHC 31.1 L (32-36) g/dl RDW 14.9 H (11.5-14.0) % Plt Count 266 (150-450) K/mm3 MPV 9.9 (7.5-11.0) fl Gran % 58.2 (36.0-66.0) % Eos # (Auto) 0.31 (0-0.5) Absolute Lymphs (auto) 2.95 (1.0-4.6) Absolute Monos (auto) 0.47 (0.0-1.3) Lymphocytes % 32.6 (24.0-44.0) % Monocytes % 5.2 (0.0-12.0) % Eosinophils % 3.4 (0.00-5.0) % Basophils % 0.6 (0.0-0.4) % Absolute Granulocytes 5.26 (1.4-6.9) Basophils # 0.05 (0-0.4) PT (9.4-12.5) SECONDS INR (0.8-3.0) APTT (25.1-36.5) SECONDS Sodium (137-145) mmol/L Potassium (3.5-5.1) mmol/L Chloride (98-107) mmol/L Carbon Dioxide (22-30) mmol/L Anion Gap (5-15) MEQ/L BUN (7-17) mg/dL Creatinine (0.52-1.04) mg/dL Estimated GFR ML/MIN Glucose (74-106) mg/dL Calcium (8.4-10.2) mg/dL Total Bilirubin (0.2-1.3) mg/dL AST (14-36) U/L ALT (0-35) U/L Alkaline Phosphatase (38-126) U/L Troponin I (0.000-0.034) ng/mL NT-Pro-B Natriuret Pep (0-900) pg/mL Serum Total Protein (6.3-8.2) g/dL Albumin (3.5-5.0) g/dL Lipase (23-300) U/L - Progress Progress: improved Progress Note: 11/13/21 14:34 Plan is for a cardiac work-up with COPD work-up. Differential diagnosis includes volume overload, CHF, infection, pneumonia, COPD exacerbation. Plan for albuterol, steroids, basic labs, chest x-ray, troponin. I did personally review the EKG. No obvious ST changes. 11/13/21 15:37 Patient's troponin is normal. Chest x-ray shows no pneumonias. Patient feels improved with albuterol and steroids. Plan for prednisone. I did discuss quitting smoking with the patient. She states her understanding. We will go from there, she has no signs of CHF, volume overload, BNP is normal. I do believe this all represents a COPD exacerbation. 11/13/21 15:40 Counseled pt/family regarding: lab results, diagnosis, need for follow-up, rad results, smoking cessation - Departure Departure Disposition: Home Clinical Impression: COPD exacerbation Condition: Stable Critical Care Time: No Referrals: JERE MOSELEY MACHINE LEARNING INTERN [Primary Care Provider] - Follow up/PCP as directed Instructions: Chronic Obstructive Pulmonary Disease, Quitting Smoking for Older Adults Prescriptions: Prednisone 10 mg [Deltasone 10 mg] 40 mg PO DAILY 5 Days #100 tablet
[2021-11-13 14:39] LABS: Absolute Neutrophil Ct (ANC) 5.26 (1.4-6.9); Basophil (Absolute #) 0.05 (0-0.4); Eosinophil % 3.4 % (0.00-5.0); Eosinophil (Absolute #) 0.31 (0-0.5); Hematocrit 45.4 % (35-47); Hemoglobin 14.1 gm/dl (12.0-16.0); Lymphocyte (Absolute #) 2.95 (1.0-4.6); Lymphocytes % 32.6 % (24.0-44.0); Mean Cell Volume 95.6 fl (78-100); Mean Corpuscular Hemoglobin 29.7 pg (26-32); Mean Corpuscular Hgb Concent. 31.1 g/dl (32-36); Mean Platelet Volume 9.9 fl (7.5-11.0); Monocyte (Absolute #) 0.47 (0.0-1.3); Monocytes % 5.2 % (0.0-12.0); Neutrophil % 58.2 % (36.0-66.0); Platelet Count 266 K/mm3 (150-450); Red Blood Count 4.75 M/mm3 (4.1-5.4); Red Cell Distribution Width 14.9 % (11.5-14.0)
[2021-11-13] MEDS ORDERED: Magnesium 1 Gm / 100 Ml D5W*** 100 ML IV ONE ×2 (14:52→15:48)
[2021-11-13] MEDS: Magnesium 1 Gm / 100 Ml D5W*** 100 ML IV SCH ×2 (14:58→15:49)
[2021-11-13 15:00] LABS: ALBUMIN 4.1 g/dL (3.5-5.0); ALKALINE PHOSPHATASE 85 U/L (38-126); ANION GAP 14.3 MEQ/L (5-15); BLOOD UREA NITROGEN 12 mg/dL (7-17); CHLORIDE 106 mmol/L (98-107); Calcium 9.4 mg/dL (8.4-10.2); Carbon Dioxide 24 mmol/L (22-30); Creatinine 1 0.66 mg/dL (0.52-1.04); EST GLOMERULAR FILTRATION RATE > 60.0 ML/MIN; Glucose 103 mg/dL (74-106); LIPASE 77 U/L (23-300); NT PRO BNP 74.1 pg/mL (0-900); Potassium 3.8 mmol/L (3.5-5.1); SGOT/AST 23 U/L (14-36); SGPT/ALT 19 U/L (0-35); SODIUM 140 mmol/L (137-145); Total Protein 6.9 g/dL (6.3-8.2)
[2021-11-13 15:02] LABS: PROTIME 11.8 SECONDS (9.4-12.5)
[2021-11-13 15:15] LABS: PTT 33.6 SECONDS (25.1-36.5)
--- NOTE | 2021-11-13 15:27 | XRAY ---
Indication: Chest pain. Fluid in lungs. Comparison: June 06, 2021. PA/lateral chest remains clear again with tiny left base calcified granuloma. Heart not enlarged. Bony thorax intact again with minimal degenerative changes. No new/acute findings.
[2021-11-13 15:42] LABS: Bacteria RARE /HPF (NEGATIVE); Epithelial Cells RARE /HPF (FEW); Mucus SLIGHT /HPF (NEGATIVE)
[2021-11-13 15:49] LABS: Appearance CLEAR (CLEAR); Bilirubin NEGATIVE (NEGATIVE); Glucose NEGATIVE (NEGATIVE); Ketones NEGATIVE (NEGATIVE); RBC NEGATIVE Ery/ul (0-5)
[2021-11-13 15:50] LABS: Nitrite NEGATIVE (NEGATIVE); Protein,Urine Dip NEGATIVE (Negative); Urine Cultured Indicated? NO; Urobilinogen 0.2 mg/dL (0-1)
[2021-11-13 15:54] LABS: Dipstick done @ ? MAIN LAB
[2021-11-13 16:07] VITALS: BP 96/63; PULSE 79; O2SAT 98
== END 2021-11-13 16:36 | disposition home or self-care (01) ==
LOC: ED 14:14
DX: J44.1 Chronic obstructive pulmonary disease with (acute) exacerbation (principal); R07.9 Chest pain, unspecified; R06.02 Shortness of breath; I11.0 Hypertensive heart disease with heart failure; I50.9 Heart failure, unspecified; K21.9 Gastro-esophageal reflux disease without esophagitis; Z72.0 Tobacco use; Z79.899 Other long term (current) drug therapy; Z79.52 Long term (current) use of systemic steroids
CPT/HCPCS: 36000; 36415; 71046; 80053; 81015; 83690; 83880; 84484; 85025; 85610; 85730; 93005; 93041; 94640; 96374; 96375; 96376; 99284; J1940; J2930; J3475; A9270-GY

== ENCOUNTER 2022-08-05 10:34 | Emergency (ER) | payer OTHER ==
[2022-08-05] MEDS ORDERED: solu-MEDROL 125 MG, Sterile H2O 10 ml 2 ML IV ONE ×2 (11:08)
[2022-08-05] MEDS ORDERED: DUONEB 0.5-3 MG/3 ml Neb IH ONE ×2 (11:08→11:13)
[2022-08-05 11:13] LABS: Absolute Neutrophil Ct (ANC) 4.69 x10^3/uL (1.4-6.9); Basophil (Absolute #) 0.07 x10^3/uL (0-0.4); Eosinophil % 3.6 % (0.00-5.0); Eosinophil (Absolute #) 0.29 x10^3/uL (0-0.5); Hematocrit 46.3 % (35-47); Hemoglobin 14.3 g/dL (12.0-16.0); Lymphocyte (Absolute #) 2.56 x10^3/uL (1.0-4.6); Lymphocytes % 31.8 % (24.0-44.0); Mean Cell Volume 93.3 fL (78-100); Mean Corpuscular Hemoglobin 28.8 pg (26-32); Mean Corpuscular Hgb Concent. 30.9 g/dL (32-36); Mean Platelet Volume 10.3 fL (7.5-11.0); Monocyte (Absolute #) 0.42 x10^3/uL (0.0-1.3); Monocytes % 5.2 % (0.0-12.0); Neutrophil % 58.3 % (36.0-66.0); Platelet Count 293 x10^3/uL (150-450); Red Blood Count 4.96 x10^6/uL (4.1-5.4); Red Cell Distribution Width 14.4 % (11.5-14.0); White Blood Count 8.1 x10^3/uL (4.0-10.5)
[2022-08-05] MEDS ORDERED: Sterile H2O 10 ml IJ ONE (11:13)
[2022-08-05] MEDS ORDERED: solu-MEDROL ONE (11:13)
[2022-08-05 11:29] LABS: ALBUMIN 4.2 g/dL (3.5-5.0); ALKALINE PHOSPHATASE 89 U/L (38-126); ANION GAP 9.2 MEQ/L (5-15); BLOOD UREA NITROGEN 7 mg/dL (7-17); CHLORIDE 106 mmol/L (98-107); Carbon Dioxide 26 mmol/L (22-30); Creatinine 1 0.56 mg/dL (0.52-1.04); EST GLOMERULAR FILTRATION RATE > 60.0 ML/MIN; Glucose 111 mg/dL (74-106); MAGNESIUM 1.8 mg/dL (1.6-2.3); NT PRO BNP 67.3 pg/mL (0-900); Potassium 3.4 mmol/L (3.5-5.1); SGOT/AST 22 U/L (14-36); SGPT/ALT 19 U/L (0-35); SODIUM 138 mmol/L (137-145); Total Protein 7.5 g/dL (6.3-8.2)
--- NOTE | 2022-08-05 11:55 | XRAY ---
Indication: Short of breath. COPD. Comparison: November 13, 2021 Portable chest again hyperinflated with incidental tiny left lung calcified granuloma. No focal infiltrate, consolidation, or large effusion. Heart not enlarged. Bony thorax intact again with mild osteopenia and degenerative changes. Impression: Continued nonacute hyperinflated chest with chronic features.
[2022-08-05] MEDS ORDERED: Vibramycin 100 MG PO ONE (12:35)
[2022-08-05 12:38] VITALS: BP 116/62; PULSE 70
[2022-08-05 12:41] VITALS: O2SAT 95
--- NOTE | 2022-08-05 12:41 | ERPHSYRPT ---
- History of Present Illness Time Seen by Provider: 08/05/22 10:36 Source: patient Exam Limitations: no limitations Patient Subjective Stated Complaint: SOB Triage Nursing Assessment: Patient brought back to ED per w/c and transferred self to bed. Patient A+O X3. Patient's skin pink, warm and dry. Patient complains of SOB and cough for one week. Patient's lung noted to have wheezing throughout. Patient complains of non productive cough. Physician History: 52-year-old female of with history of tobacco abuse presented in the ER with 1 week history of cough congestion with subjective feeling of fever and chills with progressive worsening. Patient reports coughing up yellow-green sputum moderate in amount with wheezing all over despite using inhaler. Because of recent illness she has not been smoking much. No chest pain otherwise but soreness all over because of repeated coughing. Reports initially she was h aving URI symptoms with sore throat and now more in the lower chest/lungs. Timing/Duration: week(s) (1), gradual onset, worse Cough Quality/Degree: moderate, productive cough Possible Cause: unknown cause Modifying Factors: Improves With: albuterol inhaler, rest. Worsens With: coughing, exertion Associated Symptoms: fever, chest pain/soreness, cough, dizziness, headache, muscle aches, nasal congestion, shortness of breath, sinus infection, sore throat Allergies/Adverse Reactions: morphine Allergy (Severe, Verified 08/05/22 10:37) Headache "fee like my head will explode" nortriptyline Allergy (Severe, Verified 08/05/22 10:37) Muscle Aches "severe leg cramps" acetaminophen [From Fioricet] Allergy (Intermediate, Verified 08/05/22 10:37) Rapid Heart Beat butalbital [From Fioricet] Allergy (Intermediate, Verified 08/05/22 10:37) Irregular Heart Beat caffeine [From Fioricet] Allergy (Intermediate, Verified 08/05/22 10:37) Irregular Heart Beat duloxetine [From Cymbalta] Allergy (Intermediate, Verified 08/05/22 10:37) Irregular Heart Beat Penicillins Allergy (Intermediate, Verified 08/05/22 10:37) Hives Home Medications: ALPRAZolam [Xanax] 1.5 mg PO BID 04/07/17 [History] Albuterol 8 gm Mdi Hfa [Ventolin Hfa MDI] 8 gm IH UD 04/07/17 [History] Cetirizine HCl [Zyrtec] 10 mg PO DAILY 04/07/17 [History] Docusate Sodium [Dulcoease] 100 mg PO DAILY 04/07/17 [History] Fluticasone/Vilanterol [Breo Ellipta 200-25 Mcg INH] 1 each IH DAILY 04/07/17 [History] Omeprazole 40 mg PO DAILY 04/07/17 [History] Potassium Chloride Tab* [Klor Con] 10 meq PO BID 04/07/17 [History] Quetiapine Fumarate [Seroquel] 200 mg PO HS 04/07/17 [History] Tiotropium Aurora [Spiriva] 18 mcg IH DAILY 04/07/17 [History] Tizanidine HCl 4 mg [Zanaflex 4 MG] 4 mg PO TID 04/07/17 [History] raNITIdine HCl [Zantac] 300 mg PO HS 04/07/17 [History] Albuterol 2.5 mg/3 ml Neb [Proventil 2.5 mg/3 ml Neb] 2.5 mg IH Q4HPRN PRN 09/14/19 [History] Fluticasone Propionate [Flonase NASAL] 16 gm NS DAILY 09/14/19 [History] Linaclotide [Linzess] 72 mcg PO DAILY 09/14/19 [History] Multivitamin [Flintstones] 1 each PO DAILY 09/14/19 [History] Furosemide 40 mg [Lasix 40 MG] 40 mg PO DAILY 11/13/21 [History] Hx Tetanus, Diphtheria Vaccination/Date Given: Yes Hx Influenza Vaccination/Date Given: Yes Hx Pneumococcal Vaccination/Date Given: No Travel Risk - International Travel Have you traveled outside of the country in past 3 weeks: No - Coronavirus Screening Are you exhibiting any of the following symptoms?: Yes Symptoms: Cough: New Onset, Shortness of Breath Close contact with a COVID-19 positive Pt in past 14-21 Days: No - Vaccine Status Have you recieved a Covid-19 vaccination: Yes 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: [employer] - Vaccination Dates Date of 2cond Vaccination (if applicable): 07/2021 - Review of Systems Constitutional: Fever, Chills, Fatigue Eyes: No Symptoms Ears, Nose, & Throat: Nose Congestion, Throat Pain, Throat Swelling Respiratory: Cough, Dyspnea, Wheezing Abdominal/Gastrointestinal: No Symptoms Genitourinary Symptoms: No Symptoms Musculoskeletal: Myalgias Skin: No Symptoms Neurological: Headache Psychological: No Symptoms Endocrine: No Symptoms Hematologic/Lymphatic: No Symptoms Immunological/Allergic: No Symptoms - Past Medical History Pertinent Past Medical History: Yes Neurological History: No Pertinent History ENT History: No Pertinent History Cardiac History: Congestive Heart Failure, Hypertension Respiratory History: COPD Endocrine Medical History: No Pertinent History Musculoskeletal History: Degenerative Disk Disease, Osteoarthritis, Other GI Medical History: GERD History: Other Psycho-Social History: Anxiety, Depression Female Reproductive Disorders: Abnormal Uterine Bleeding Other Medical History: allergies seasonal, states "getting testing for difficulty emptying bladder and contracted kidney by the ultrasound" - Past Surgical History Past Surgical History: Yes Neuro Surgical History: No Pertinent History Cardiac: No Pertinent History Respiratory: No Pertinent History Gastrointestinal: Appendectomy, Cholecystectomy Genitourinary: No Pertinent History Musculoskeletal: Orthopedic Surgery Female Surgical History: Tubal Ligation Other Surgical History: back surgery "put two rods in and some other hdw and replaced disc", ear surgery "fixed a whole in my right ear" uterine ablation, - Social History Smoking Status: Former smoker How long have you smoked: 30 Exposure to second hand smoke: Yes Drug Use: none Patient Lives Alone: No - Nursing Vital Signs Nursing Vital Signs: Initial Vital Signs Temperature 98.3 F 08/05/22 10:40 Pulse Rate 71 08/05/22 10:40 Respiratory Rate 18 08/05/22 10:40 Blood Pressure 139/80 08/05/22 10:40 O2 Sat by Pulse Oximetry 97 08/05/22 10:40 Pain Scale Pain Intensity 0 - Physical Exam General Appearance: no apparent distress, alert Eye Exam: PERRL/EOMI, eyes nml inspection Ears, Nose, Throat Exam: TMs normal, pharyngeal erythema Neck Exam: normal inspection, non-tender, supple, full range of motion Respiratory Exam: rhonchi, wheezing, No respiratory distress, No diminished br eath sounds, No accessory muscle use Cardiovascular Exam: regular rate/rhythm, normal heart sounds Gastrointestinal/Abdomen Exam: soft, normal bowel sounds, No tenderness Back Exam: normal inspection, normal range of motion Extremity Exam: normal inspection, normal range of motion Neurologic Exam: alert, oriented x 3, cooperative Skin Exam: normal color SpO2 Interpretation: normal SpO2: 95 O2 Delivery: Room Air - Course EKG Interpreted by Me: RATE ([id number]), Sinus Rhythm, NORMAL AXIS, NORMAL INTERVALS, Non-specific ST Changes Ordered Tests: Active Orders 24 hr Category Date Time Status Designer Architect STAT Care 08/05/22 11:08 Active EKG-ER Only STAT Care 08/05/22 11:08 Active IV Insertion STAT Care 08/05/22 11:08 Active CHEST 1 VIEW (PORTABLE) Stat Exams 08/05/22 11:08 Completed BLOOD CULTURE Stat Lab 08/05/22 11:23 Received CBC W DIFF Stat Lab 08/05/22 Completed CMP Stat Lab 08/05/22 Completed Lactic Acid Stat Lab 08/05/22 11:08 Completed MAGNESIUM Stat Lab 08/05/22 Completed NT PRO BNP Stat Lab 08/05/22 Completed TROPONIN Q4H Lab 08/05/22 Completed TROPONIN Q4H Lab 08/05/22 15:15 Ordered TROPONIN Q4H Lab 08/05/22 19:15 Ordered Respiratory Therapy Assessment DAILY RT 08/05/22 11:18 Active Medication Summary Discontinued Medications Generic Name Dose Route Start Last Admin Trade Name Freq PRN Reason Stop Dose Admin Albuterol/Ipratropium 3 ml 08/05/22 11:08 08/05/22 11:17 Ipratropium/Albuterol Sulfate 3 Ml Ampul.Neb IH 08/05/22 11:09 3 ml STAT ONE Administration Albuterol/Ipratropium Confirm 08/05/22 11:13 Ipratropium/Albuterol Sulfate 3 Ml Ampul.Neb Administered 08/05/22 11:14 Dose 3 ml IH .STK-MED ONE Methylprednisolone Sodium 0 mg 08/05/22 11:08 08/05/22 11:13 Succinate 125 mg/ Sterile IV 08/05/22 11:09 125 mg Water 2 ml STAT ONE Administration Methylprednisolone Sodium Succinate Confirm 08/05/22 11:13 Methylprednis Sod Succ 125 Mg/2 Ml Vial Administered 08/05/22 11:14 Dose 125 mg .ROUTE .STK-MED ONE Sterile Water Confirm 08/05/22 11:13 Water For Injection,Sterile 10 Ml Vial Administered 08/05/22 11:14 Dose 10 ml IJ .STK-MED ONE Lab/Rad Data: Laboratory Result Diagrams 08/05/22 Unknown 08/05/22 Unknown Laboratory Results 08/05/22 08/05/22 08/05/22 Range/Units Unknown Unknown Unknown WBC 8.1 (4.0-10.5) x10^3/uL RBC 4.96 (4.1-5.4) x10^6/uL Hgb 14.3 (12.0-16.0) g/dL Hct 46.3 (35-47) % MCV 93.3 (78-100) fL MCH 28.8 (26-32) pg MCHC 30.9 L (32-36) g/dL RDW 14.4 H (11.5-14.0) % Plt Count 293 (150-450) x10^3/uL MPV 10.3 (7.5-11.0) fL Gran % 58.3 (36.0-66.0) % Immature Gran % (Auto) 0.2 (0.00-0.4) % Nucleat RBC Rel Count 0.0 (0.00-0.1) % Eos # (Auto) 0.29 (0-0.5) x10^3/uL Immature Gran # (Auto) 0.02 (0.00-0.03) x10^3u/L Absolute Lymphs (auto) 2.56 (1.0-4.6) x10^3/uL Absolute Monos (auto) 0.42 (0.0-1.3) x10^3/uL Absolute Nucleated RBC 0.00 (0.00-0.01) x10^3u/L Lymphocytes % 31.8 (24.0-44.0) % Monocytes % 5.2 (0.0-12.0) % Eosinophils % 3.6 (0.00-5.0) % Basophils % 0.9 (0.0-0.4) % Absolute Granulocytes 4.69 (1.4-6.9) x10^3/uL Basophils # 0.07 (0-0.4) x10^3/uL Sodium 138 (137-145) mmol/L Potassium 3.4 L (3.5-5.1) mmol/L Chloride 106 (98-107) mmol/L Carbon Dioxide 26 (22-30) mmol/L Anion Gap 9.2 (5-15) MEQ/L BUN 7 (7-17) mg/dL Creatinine 0.56 (0.52-1.04) mg/dL Estimated GFR > 60.0 ML/MIN Glucose 111 H (74-106) mg/dL Lactic Acid (0.4-2.0) Calcium 9.0 (8.4-10.2) mg/dL Magnesium 1.8 (1.6-2.3) mg/dL Total Bilirubin 0.50 (0.2-1.3) mg/dL AST 22 (14-36) U/L ALT 19 (0-35) U/L Alkaline Phosphatase 89 (38-126) U/L Troponin I < 0.012 (0.000-0.034) ng/mL NT-Pro-B Natriuret Pep 67.3 (0-900) pg/mL Serum Total Protein 7.5 (6.3-8.2) g/dL Albumin 4.2 (3.5-5.0) g/dL 08/05/22 Range/Units 11:08 WBC (4.0-10.5) x10^3/uL RBC (4.1-5.4) x10^6/uL Hgb (12.0-16.0) g/dL Hct (35-47) % MCV (78-100) fL MCH (26-32) pg MCHC (32-36) g/dL RDW (11.5-14.0) % Plt Count (150-450) x10^3/uL MPV (7.5-11.0) fL Gran % (36.0-66.0) % Immature Gran % (Auto) (0.00-0.4) % Nucleat RBC Rel Count (0.00-0.1) % Eos # (Auto) (0-0.5) x10^3/uL Immature Gran # (Auto) (0.00-0.03) x10^3u/L Absolute Lymphs (auto) (1.0-4.6) x10^3/uL Absolute Monos (auto) (0.0-1.3) x10^3/uL Absolute Nucleated RBC (0.00-0.01) x10^3u/L Lymphocytes % (24.0-44.0) % Monocytes % (0.0-12.0) % Eosinophils % (0.00-5.0) % Basophils % (0.0-0.4) % Absolute Granulocytes (1.4-6.9) x10^3/uL Basophils # (0-0.4) x10^3/uL Sodium (137-145) mmol/L Potassium (3.5-5.1) mmol/L Chloride (98-107) mmol/L Carbon Dioxide (22-30) mmol/L Anion Gap (5-15) MEQ/L BUN (7-17) mg/dL Creatinine (0.52-1.04) mg/dL Estimated GFR ML/MIN Glucose (74-106) mg/dL Lactic Acid 1.2 (0.4-2.0) Calcium (8.4-10.2) mg/dL Magnesium (1.6-2.3) mg/dL Total Bilirubin (0.2-1.3) mg/dL AST (14-36) U/L ALT (0-35) U/L Alkaline Phosphatase (38-126) U/L Troponin I (0.000-0.034) ng/mL NT-Pro-B Natriuret Pep (0-900) pg/mL Serum Total Protein (6.3-8.2) g/dL Albumin (3.5-5.0) g/dL - Progress Progress: improved Air Movement: good Progress Note: 08/05/22 12:41 52-year-old is evaluated for cough congestion. Patient was having wheezing bilaterally. Given Solu-Medrol and DuoNeb, on reevaluation feeling better. She is not tachypneic or tachycardic on reevaluation. She is maintaining oxygen saturation around 96% on room air. Chest x-ray negative, lab work fairly unremarkable. I believe patient has COPD bronchitis and will continue with steroids and nebs along with antibiotics to go home. Discussed signs symptoms of worsening needing return to ER which she seems understanding. Stable for discharge. Blood Culture(s) Obtained: Yes Antibiotics given: Yes Counseled pt/family regarding: lab results, diagnosis, rad results, smoking cessation - Departure Departure Disposition: Home Clinical Impression: COPD with acute bronchitis Condition: Stable Critical Care Time: No Referrals: JERE MOSELEY NP [Primary Care Provider] - Follow up/PCP as directed (1-2 days for reevaluation) Instructions: Chronic Obstructive Pulmonary Disease, Exacerbation of COPD (DC) Additional Instructions: Do not smoke. Use inhaler as recommended. Follow-up with primary care for reevaluation. Return to ER for worsening cough/wheezing or if having difficulty breathing, fever chills etc. Prescriptions: Prednisone 20 mg [Deltasone 20 mg] 60 mg PO DAILY 5 Days #15 tablet Doxycycline Hyclate 100 mg [Vibramycin 100 MG] 100 mg PO BID #14 tab
[2022-08-05] MEDS ORDERED: Vibramycin 100 MG ONE (12:47)
[2022-08-05 13:01] LABS: INFLUENZA A NEGATIVE (NEGATIVE); INFLUENZA B NEGATIVE (NEGATIVE); RESPIRATORY SYNCTIAL VIRUS NEGATIVE (Negative); SARS-CoV-2 Xpert Express NEGATIVE (NEGATIVE)
== END 2022-08-05 12:58 | disposition home or self-care (01) ==
LOC: ED 10:34
DX: J44.0 Chronic obstructive pulmonary disease with (acute) lower respiratory infection (principal); J20.9 Acute bronchitis, unspecified; R05.1 Acute cough; R09.81 Nasal congestion; R50.9 Fever, unspecified; I11.0 Hypertensive heart disease with heart failure; Z79.52 Long term (current) use of systemic steroids; Z79.899 Other long term (current) drug therapy
CPT/HCPCS: 0241U; 36000; 36415; 71045; 80053; 83605; 83735; 83880; 84484; 85025; 87040; 93005; 93041; 94640; 96374; 99284; J2930; A9270-GY

== ENCOUNTER 2024-02-03 12:20 | Emergency (ER) | payer OTHER ==
[2024-02-03 12:42] VITALS: RESP 18; TEMP 99.1
[2024-02-03 13:18] LABS: Absolute Neutrophil Ct (ANC) 10.84 x10^3/uL (1.56-6.13); BASOPHIL % 0.5 % (0.1-1.2); Basophil (Absolute #) 0.07 x10^3/uL (0.01-0.08); Eosinophil % 0.4 % (0.7-5.8); Eosinophil (Absolute #) 0.05 x10^3/uL (0.04-0.36); Hematocrit 45.5 % (34.1-44.9); Hemoglobin 14.9 g/dL (11.2-15.7); IMMATURE GRAN # 0.05 x10^3u/L (0.001-0.031); IMMATURE GRAN % 0.4 % (0.001-0.429); Lymphocyte (Absolute #) 1.48 x10^3/uL (1.18-3.74); Lymphocytes % 11.6 % (19.3-51.7); Mean Cell Volume 95.2 fL (79.4-94.8); Mean Corpuscular Hemoglobin 31.2 pg (25.6-32.2); Mean Corpuscular Hgb Concent. 32.7 g/dL (32.2-35.5); Mean Platelet Volume 11.4 fL (9.4-12.3); Monocyte (Absolute #) 0.31 x10^3/uL (0.24-0.86); Monocytes % 2.4 % (4.7-12.5); Neutrophil % 84.7 % (34.0-71.1); Platelet Count 239 x10^3/uL (182-369); Red Blood Count 4.78 x10^6/uL (3.93-5.22); Red Cell Distribution Width 13.9 % (11.7-14.4); White Blood Count 12.8 x10^3/uL (3.98-10.04)
--- NOTE | 2024-02-03 13:33 | ERPHSYRPT ---
- History of Present Illness Source: patient, other (Significant other) Exam Limitations: other ( very poor historian) Patient Subjective Stated Complaint: Pt states "I think my liver enzymes are el evated. I am not sure what is going on." Triage Nursing Assessment: PT presented alert and oriented X 3, skin pwd. Pt ambulates with an upright steady gait, able to speak in clear full sentences PT has bandage on her right wrist, pt advised she has a cut, pt will not answer if it was accident or on purpose. Physician History: 53-year-old female coming to the ER with her significant other states that she is here to get her liver functions checked which were elevated o patient does have chronic generalized abdominal painn 01/23/2024. On 01/23/2024 upon [facility] record review her AST was elevated at 140 and her ALT was elevated at 216 with a normal bilirubin and a normal alk phos. patient does have chronic generalized abdominal pain which she rates a 5 out of 10 and sharp. She denies nausea, vomiting, diarrhea, dysuria, hematuria, melena, hematochezia, alcohol use, and fever. Patient and her significant are extremely poor historians. Timing/Duration: other ( 01/23/2024) Modifying Factors: Improves With: nothing Associated Symptoms: abdominal pain, other Allergies/Adverse Reactions: morphine Allergy (Severe, Verified 08/05/22 10:37) Headache "fee like my head will explode" nortriptyline Allergy (Severe, Verified 08/05/22 10:37) Muscle Aches "severe leg cramps" acetaminophen [From Fioricet] Allergy (Intermediate, Verified 08/05/22 10:37) Rapid Heart Beat butalbital [From Fioricet] Allergy (Intermediate, Verified 08/05/22 10:37) Irregular Heart Beat caffeine [From Fioricet] Allergy (Intermediate, Verified 08/05/22 10:37) Irregular Heart Beat duloxetine [From Cymbalta] Allergy (Intermediate, Verified 08/05/22 10:37) Irregular Heart Beat Penicillins Allergy (Intermediate, Verified 08/05/22 10:37) Hives Home Medications: ALPRAZolam [Xanax] 1.5 mg PO BID 04/07/17 [History] Albuterol 8 gm Mdi Hfa [Ventolin Hfa MDI] 8 gm IH UD 04/07/17 [History] Cetirizine HCl [Zyrtec] 10 mg PO DAILY 04/07/17 [History] Docusate Sodium [Dulcolax Stool Softener] 100 mg PO DAILY 04/07/17 [History] Fluticasone/Vilanterol [Breo Ellipta 200-25 Mcg Inhalr] 1 each IH DAILY 04/07/17 [History] Omeprazole 40 mg PO DAILY 04/07/17 [History] Potassium Chloride Tab* [Klor Con] 10 meq PO BID 04/07/17 [History] Quetiapine Fumarate [Seroquel] 200 mg PO HS 04/07/17 [History] Tiotropium [place] [Spiriva] 18 mcg IH DAILY 04/07/17 [History] Tizanidine HCl 4 mg [Zanaflex 4 MG] 4 mg PO TID 04/07/17 [History] raNITIdine HCl [Zantac] 300 mg PO HS 04/07/17 [History] Albuterol 2.5 mg/3 ml Neb [Proventil 2.5 mg/3 ml Neb] 2.5 mg IH Q4HPRN PRN 09/14/19 [History] Fluticasone Propionate [Flonase NASAL] 16 gm NS DAILY 09/14/19 [History] Linaclotide [Linzess] 72 mcg PO DAILY 09/14/19 [History] Multivitamin [Flintstones] 1 each PO DAILY 09/14/19 [History] Furosemide 40 mg [Lasix 40 MG] 40 mg PO DAILY 11/13/21 [History] Hx Tetanus, Diphtheria Vaccination/Date Given: Yes Hx Influenza Vaccination/Date Given: Yes Hx Pneumococcal Vaccination/Date Given: No Immunizations Up to Date: No Travel Risk - International Travel Have you traveled outside of the country in past 3 weeks: No - Emerging Infectious Disease Are you exhibiting symptoms associated with any current EIDs: Yes Symptoms: Abdominal Pain - Review of Systems Constitutional: No Symptoms Eyes: No Symptoms Ears, Nose, & Throat: No Symptoms Respiratory: No Symptoms Cardiac: No Symptoms Genitourinary Symptoms: No Symptoms Musculoskeletal: No Symptoms Skin: No Symptoms Neurological: No Symptoms Psychological: No Symptoms Endocrine: No Symptoms Hematologic/Lymphatic: No Symptoms Immunological/Allergic: No Symptoms - Past Medical History Pertinent Past Medical History: Yes Neurological History: No Pertinent History ENT History: No Pertinent History Cardiac History: Congestive Heart Failure, Hypertension Respiratory History: COPD Endocrine Medical History: No Pertinent History Musculoskeletal History: Degenerative Disk Disease, Osteoarthritis, Other GI Medical History: GERD, Other History: Other Psycho-Social History: Anxiety, Depression Female Reproductive Disorders: Abnormal Uterine Bleeding Other Medical History: allergies seasonal, states "getting testing for difficulty emptying bladder and contracted kidney by the ultrasound". had upper gi and [facility] stated "abnormal areas." - Past Surgical History Past Surgical History: Yes Neuro Surgical History: No Pertinent History Cardiac: No Pertinent History Respiratory: No Pertinent History Gastrointestinal: Appendectomy, Cholecystectomy Genitourinary: No Pertinent History Musculoskeletal: Orthopedic Surgery Female Surgical History: Tubal Ligation Other Surgical History: back surgery "put two rods in and some other hdw and replaced disc", ear surgery "fixed a whole in my right ear" uterine ablation, Significant Family History: no pertinent family hx - Female History Hx Last Menstrual Period: ablasion Hx Now: No - Social History Smoking Status: Former smoker How long have you smoked: 30 Exposure to second hand smoke: Yes Drug Use: none Patient Lives Alone: No - Social Determinants of Health Will the patient participate in the screening: Declined to provide - Nursing Vital Signs Nursing Vital Signs: Initial Vital Signs Temperature 99.1 F 02/03/24 12:28 Pulse Rate 90 02/03/24 12:28 Respiratory Rate 18 02/03/24 12:28 Blood Pressure 128/85 02/03/24 12:28 O2 Sat by Pulse Oximetry 98 02/03/24 12:28 Pain Scale Pain Intensity 0 WNL - Physical Exam General Appearance: no apparent distress Eye Exam: PERRL/EOMI, eyes nml inspection Ears, Nose, Throat Exam: normal ENT inspection, TMs normal, pharynx normal, moist mucous membranes Neck Exam: normal inspection, non-tender, supple, full range of motion, No meningismus, No mass, No Brudzinski, No Kernig's Respiratory Exam: airway intact, crackles/rales (Faint rales bilateral bases but overall clear) Cardiovascular Exam: regular rate/rhythm, normal heart sounds, normal peripheral pulses, capillary refill <2 sec, No murmur Gastrointestinal/Abdomen Exam: soft, normal bowel sounds, tenderness ( mild diffuse tenderness palpation without guarding or rebound) Back Exam: normal inspection, normal range of motion, No CVA tenderness Extremity Exam: normal inspection, normal range of motion Neurologic Exam: alert, oriented x 3, cooperative, vice president regulatory II-XII nml as tested, normal mood/affect Skin Exam: normal color, warm, dry Lymphatic Exam: No adenopathy SpO2 Interpretation: normal SpO2: 98 O2 Delivery: Room Air - Course Nursing assessment & vital signs reviewed: Yes Ordered Tests: Active Orders 24 hr Category Date Time Status AMYLASE Stat Lab 02/03/24 13:10 Completed CBC W DIFF Stat Lab 02/03/24 13:10 Completed CMP Stat Lab 02/03/24 13:10 Completed ETHYL ALCOHOL Stat Lab 02/03/24 13:10 Completed LIPASE Stat Lab 02/03/24 13:10 Completed UA W/RFX UR CULTURE Stat Lab 02/03/24 13:46 Completed Urine Triage Profile Stat Lab 02/03/24 13:46 Completed Lab/Rad Data: Laboratory Result Diagrams 02/03/24 13:10 02/03/24 13:10 Laboratory Results 02/03/24 02/03/24 02/03/24 Range/Units 13:46 13:46 13:10 WBC (3.98-10.04) x10^3/uL RBC (3.93-5.22) x10^6/uL Hgb (11.2-15.7) g/dL Hct (34.1-44.9) % MCV (79.4-94.8) fL MCH (25.6-32.2) pg MCHC (32.2-35.5) g/dL RDW (11.7-14.4) % Plt Count (182-369) x10^3/uL MPV (9.4-12.3) fL Gran % (34.0-71.1) % Immature Gran % (Auto) (0.001-0.429) % Nucleat RBC Rel Count (0.00-0.2) % Eos # (Auto) (0.04-0.36) x10^3/uL Immature Gran # (Auto) (0.001-0.031) x10^3u/L Absolute Lymphs (auto) (1.18-3.74) x10^3/uL Absolute Monos (auto) (0.24-0.86) x10^3/uL Absolute Nucleated RBC (0.00-0.012) x10^3u/L Lymphocytes % (19.3-51.7) % Monocytes % (4.7-12.5) % Eosinophils % (0.7-5.8) % Basophils % (0.1-1.2) % Absolute Granulocytes (1.56-6.13) x10^3/uL Basophils # (0.01-0.08) x10^3/uL Sodium (135-145) mmol/L Potassium (3.5-5.1) mmol/L Chloride (98-107) mmol/L Carbon Dioxide (22-30) mmol/L Anion Gap (5-15) MEQ/L BUN (7-17) mg/dL Creatinine (0.52-1.04) mg/dL Estimated GFR ML/MIN Glucose (74-106) mg/dL Calcium (8.4-10.2) mg/dL Total Bilirubin (0.2-1.3) mg/dL AST (14-36) U/L ALT (0-35) U/L Alkaline Phosphatase (38-126) U/L Ammonia (9-30) umol/L Serum Total Protein (6.3-8.2) g/dL Albumin (3.5-5.0) g/dL Amylase (30-110) U/L Lipase (23-300) U/L Urine Color Yellow (Yellow) Urine Appearance Clear (Clear) Urine pH 6.0 (4.6-8.0) Ur Specific [place] 1.015 (1.005-1.030) Urine Protein Negative (Negative) Urine Glucose (UA) Negative (Negative) mg/dL Urine Ketones 40 A (Negative) Urine Blood Negative (Negative) Urine Nitrite Negative (Negative) Urine Bilirubin Negative (Negative) Urine Urobilinogen 1.0 A (0.2) mg/dL Ur Leukocyte Esterase Small A (Negative) U Hyaline Cast (Auto) NONE SEEN (0-2) /LPF Urine Microscopic RBC 3-5 (0-5) /HPF Urine Microscopic WBC 3-5 (0-5) /HPF Ur Epithelial Cells Few (None Seen) /HPF Urine Bacteria None Seen (None Seen) /HPF Urine Culture Reflexed NO (NO) Urine Opiates Level NEGATIVE (NEGATIVE) Ur Methadone NEGATIVE (NEGATIVE) Urine Barbiturates NEGATIVE (NEGATIVE) Ur Phencyclidine (PCP) NEGATIVE (NEGATIVE) Urine Amphetamine NEGATIVE (NEGATIVE) U Benzodiazepine Level POSITIVE A (NEGATIVE) Urine Cocaine NEGATIVE (NEGATIVE) Urine Marijuana (THC) POSITIVE A (NEGATIVE) Ethyl Alcohol < 10 (0-10) mg/dL 02/03/24 02/03/24 02/03/24 Range/Units 13:10 13:10 13:10 WBC 12.8 H (3.98-10.04) x10^3/uL RBC 4.78 (3.93-5.22) x10^6/uL Hgb 14.9 (11.2-15.7) g/dL Hct 45.5 H (34.1-44.9) % MCV 95.2 H (79.4-94.8) fL MCH 31.2 (25.6-32.2) pg MCHC 32.7 (32.2-35.5) g/dL RDW 13.9 (11.7-14.4) % Plt Count 239 (182-369) x10^3/uL MPV 11.4 (9.4-12.3) fL Gran % 84.7 H (34.0-71.1) % Immature Gran % (Auto) 0.4 (0.001-0.429) % Nucleat RBC Rel Count 0.0 (0.00-0.2) % Eos # (Auto) 0.05 (0.04-0.36) x10^3/uL Immature Gran # (Auto) 0.05 H (0.001-0.031) x10^3u/L Absolute Lymphs (auto) 1.48 (1.18-3.74) x10^3/uL Absolute Monos (auto) 0.31 (0.24-0.86) x10^3/uL Absolute Nucleated RBC 0.00 (0.00-0.012) x10^3u/L Lymphocytes % 11.6 L (19.3-51.7) % Monocytes % 2.4 L (4.7-12.5) % Eosinophils % 0.4 L (0.7-5.8) % Basophils % 0.5 (0.1-1.2) % Absolute Granulocytes 10.84 H (1.56-6.13) x10^3/uL Basophils # 0.07 (0.01-0.08) x10^3/uL Sodium 139 (135-145) mmol/L Potassium 3.8 (3.5-5.1) mmol/L Chloride 107 (98-107) mmol/L Carbon Dioxide 19 L (22-30) mmol/L Anion Gap 16.2 H (5-15) MEQ/L BUN 9 (7-17) mg/dL Creatinine 0.50 L (0.52-1.04) mg/dL Estimated GFR 112.8 ML/MIN Glucose 103 (74-106) mg/dL Calcium 9.6 (8.4-10.2) mg/dL Total Bilirubin 0.70 (0.2-1.3) mg/dL AST 25 (14-36) U/L ALT 29 (0-35) U/L Alkaline Phosphatase 83 (38-126) U/L Ammonia < 9 L (9-30) umol/L Serum Total Protein 7.3 (6.3-8.2) g/dL Albumin 4.2 (3.5-5.0) g/dL Amylase 64 (30-110) U/L Lipase 66 (23-300) U/L Urine Color (Yellow) Urine Appearance (Clear) Urine pH (4.6-8.0) Ur Specific [place] (1.005-1.030) Urine Protein (Negative) Urine Glucose (UA) (Negative) mg/dL Urine Ketones (Negative) Urine Blood (Negative) Urine Nitrite (Negative) Urine Bilirubin (Negative) Urine Urobilinogen (0.2) mg/dL Ur Leukocyte Esterase (Negative) U Hyaline Cast (Auto) (0-2) /LPF Urine Microscopic RBC (0-5) /HPF Urine Microscopic WBC (0-5) /HPF Ur Epithelial Cells (None Seen) /HPF Urine Bacteria (None Seen) /HPF Urine Culture Reflexed (NO) Urine Opiates Level (NEGATIVE) Ur Methadone (NEGATIVE) Urine Barbiturates (NEGATIVE) Ur Phencyclidine (PCP) (NEGATIVE) Urine Amphetamine (NEGATIVE) U Benzodiazepine Level (NEGATIVE) Urine Cocaine (NEGATIVE) Urine Marijuana (THC) (NEGATIVE) Ethyl Alcohol (0-10) mg/dL - Progress Progress: improved Progress Note: 02/03/24 15:30 Nursing note and vital signs reviewed. No food or housing insecurity noted all lab results thoroughly reviewed and shared with patient/significant other. It appears patient's transaminitis has resolved and no other lab abnormalities noted except leukocyte esterase in the urine so will be treated with Macrobid 100 mg p.o. twice daily x 3 days. Abdominal pain appears chronic and abdomen is soft and only minimally tender to palpation without any guarding or rebound, so CT of the abdomen pelvis not done. Patient appears to be quite comfortable and in no apparent distress. Discharged in stable condition with instructions to follow-up with her PCP and return to ER for increasing pain or temperature greater 100.5 Patient/significant other voiced comprehension of discharge instructions. Counseled pt/family regarding: drug and/or alcohol abuse, lab results, diagnosis, need for follow-up Medical Desision Making - Independent Historian Additional History obtained from: Spouse ( Significant other) - Diagnostic Testing Diagnostic test were ordered, analyzed, and reviewed by me: Yes - Risk of complications The pt has a mod risk of morbidity or mortality based on: Need for prescription drug management - Departure Departure Disposition: Home Clinical Impression: Urinary tract infection, Chronic abdominal pain Condition: Stable Critical Care Time: No Referrals: CONCHA LOREN[facility] ADVISOR [Primary Care Provider] - Follow up/PCP as directed Instructions: Urinary tract infections in adults, Abdominal Pain, Adult ED Additional Instructions: Follow-up with your family MD in 1 to 2 days Macrobid twice a day for 5 days Return to ER for increasing pain or temperature greater 100.5 Prescriptions: Nitrofurantoin Macro 100 mg [Macrobid 100MG Capsule] 100 mg PO BID 5 Days #10 cap
[2024-02-03 13:35] LABS: ALBUMIN 4.2 g/dL (3.5-5.0); ANION GAP 16.2 MEQ/L (5-15); BILIRUBIN,TOTAL 0.7 mg/dL (0.2-1.3); Calcium 9.6 mg/dL (8.4-10.2); Creatinine 1 0.5 mg/dL (0.52-1.04); EST GLOMERULAR FILTRATION RATE 112.8 ML/MIN; Potassium 3.8 mmol/L (3.5-5.1); Total Protein 7.3 g/dL (6.3-8.2)
[2024-02-03 14:00] LABS: Appearance Clear (Clear); Bacteria None Seen /HPF (None Seen); Bilirubin Negative (Negative); Blood Negative (Negative); Epithelial Cells Few /HPF (None Seen); Glucose, Urine Negative (Negative); Hyaline Casts NONE SEEN /LPF (0-2); Ketones 40 (Negative); Leukocyte Esterase Small (Negative); Nitrite Negative (Negative); Protein,Urine Dip Negative (Negative); Specific Gravity 1.015 (1.005-1.030)
[2024-02-03 14:01] LABS: ADD URINE CULTURE? NO (NO)
[2024-02-03 14:21] LABS: Amphetamine,Urine NEGATIVE (NEGATIVE); Barbiturate,Urine NEGATIVE (NEGATIVE); Benzodiazepine,Urine POSITIVE (NEGATIVE); Cocaine,Urine NEGATIVE (NEGATIVE); Methadone,Urine NEGATIVE (NEGATIVE); Opiate,Urine NEGATIVE (NEGATIVE); PCP,Urine NEGATIVE (NEGATIVE); THC,Urine POSITIVE (NEGATIVE)
[2024-02-03 14:36] VITALS: O2SAT 98
[2024-02-03 14:48] VITALS: BP 118/82; PULSE 84
== END 2024-02-03 14:49 | disposition home or self-care (01) ==
LOC: ED 12:20
DX: N39.0 Urinary tract infection, site not specified (principal); G89.29 Other chronic pain; R10.84 Generalized abdominal pain; I11.0 Hypertensive heart disease with heart failure; I50.9 Heart failure, unspecified; Z79.899 Other long term (current) drug therapy
CPT/HCPCS: 36415; 80053; 80307; 81001; 82077; 82140; 82150; 83690; 85025; 99283